=== PATIENT | female | born 1980 | race Asian ===

== ENCOUNTER 2018-01-07 10:21 | Emergency (ER) | payer SELFPAY ==
[2018-01-07 11:52] LABS: #Basophils 0.1 thou/uL (0.0-0.2); #Lymphocytes 1.1 thou/uL (1.20-3.40); #Monocytes 0.3 thou/uL (0.11-0.59); #Neutrophils 4.5 thou/uL (1.40-6.50); %Eosinophils 0.4 % (0.0-10.0); %Lymphocytes 18.3 % (21.0-51.0); %Monocytes 4.2 % (0.0-10.0); Hemoglobin 13.1 g/dL (12.0-16.0); Mean Corpuscular HGB CONC 34.9 g/dL (32.0-36.0); Mean Corpuscular Hemoglobin 31.4 pg (27.0-31.0); Mean Platelet Volume 8.6 fL (7.4-10.4); Platelet Count 184 thou/uL (130-400); RBC Distribution Width 11.6 % (11.5-14.5); Red Blood Cell (RBC) Count 4.16 mill/uL (4.20-5.40); White Blood Cell (WBC) Count 5.9 thou/uL (4.8-10.8)
--- NOTE | 2018-01-07 13:34 | ULT ---
FIRST TRIMESTER OBSTETRICAL ULTRASOUND: INDICATION: Bleeding during . FINDINGS: There is an intrauterine gestational sac containing a yolk sac and pole. Cardiac activity is s lightly diminished at 87 b.p.m. [place]-rump length measured 0.22 cm giving an estimated gestational a ge of 5 weeks and 5 days. The clinical age is 7 weeks and 0 days with estimated due date of 08/26/18 . The estimated due date by ultrasound is 09/04/18. There is a 1.5 cm corpus luteal cyst involving t he left adnexa. No free fluid is evident. The uterus measured 8.3 x 5.7 x 2 cm. The right ovary me asured 1.7 x 2.6 x 1.4 cm. The left ovary measured 2.4 x 3.4 x 2.1 cm. IMPRESSION: 1. Single live intrauterine gestation with heart tones at 87 b.p.m., slightly slower than what is expected. Post clinical followup and sonographic followup as necessary is recommended. 2. A 1.5 cm left adnexal corpus luteal cyst. 3. No free fluid identified. POS: [facility]
[2018-01-09 03:54] LABS: Chlamydia by PCR Not Detected (NotDetected); GC by PCR Not Detected (NotDetected)
== END 2018-01-07 13:37 | disposition home or self-care (01) ==
LOC: SCSER 10:21
DX: O20.0 Threatened abortion (principal); Z3A.01 Less than 8 weeks gestation of pregnancy
CPT/HCPCS: 76856; 84702; 85025; 86900; 86901; 87480; 87491; 87510; 87591; 87660